=== PATIENT | female | born 1970 | race Caucasian/White ===

== ENCOUNTER 2018-11-09 06:09 | Day surgery (SDC) | payer OTHER ==
[~2018-11-09 06:09] MED LIST: ACETAMINOPHEN 1,000 MG/100 ML BTL IV ONE; CLINDAMYCIN PHOS/D5W 900MG 900 MG/50 ML BAG IVPB ONE
[2018-11-09] MEDS ORDERED: HYDROCODONE/APAP 5/325MG TABLET PO ONE (06:10)
[2018-11-09] MEDS ORDERED: PROPOFOL 10 MG/ML VIAL IV ONE (06:10)
[2018-11-09] MEDS ORDERED: FENTANYL PF 100MCG/2ML VIAL IV ONE (06:10)
[2018-11-09] MEDS ORDERED: LIDOCAINE 2% MDV (20MG/ML) 20ML VIAL IV ONE (06:10)
[2018-11-09] MEDS ORDERED: MIDAZOLAM HCL 2MG/2ML VIAL IV ONE (06:10)
[2018-11-09] MEDS ORDERED: ONDANSETRON HCL IV 4 MG/2 ML VIAL IVP ONE (06:10)
[2018-11-09] MEDS ORDERED: LIDOCAINE 1% MPF 100MG/10ML STERILE-PAK AMPULE SQ ONE (08:15)
[2018-11-09] MEDS ORDERED: BUPIVACAINE 0.5% (5MG/ML) PF 30ML VIAL SQ ONE (08:15)
--- NOTE | 2018-11-13 22:01 | Operative Note ---
DATE OF SURGERY: 11/09/2018 PREOPERATIVE DIAGNOSES: BUNION LEFT FOOT. PAINFUL LONG SECOND METATARSAL LEFT FOOT. PAINFUL HAMMERTOE SECOND TOE LEFT FOOT AND FURTHER BONY SPUR, PAINFUL. POSTOPERATIVE DIAGNOSES: BUNION LEFT FOOT. PAINFUL LONG SECOND METATARSAL LEFT FOOT. PAINFUL HAMMERTOE SECOND TOE LEFT FOOT AND FURTHER BONY SPUR, PAINFUL. PROCEDURE: 1. MATTY BUNIONECTOMY WITH INTERNAL SCREW FIXATION LEFT FOOT. 2. SHORTENING SECOND METATARSAL OSTEOTOMY WITH INTERNAL SCREW FIXATION LEFT FOOT. 3. HAMMERTOE REPAIR WITH K-WIRE FIXATION SECOND DIGIT LEFT FOOT. ANESTHESIA: LOCAL WITH IV SEDATION. SURGEON: CHEN CONWAY DPM INDICATIONS: The patient had painful bunion deformity long second metatarsal and second hammertoe left foot, not responsive to previous conservative care, requiring surgical intervention. X-ray consistent with prominent bunion deformity with laterally deviated hallux and sesamoids left, increased in first intermetatarsal angle long second metatarsal, and hammertoe second digit left foot. PROCEDURE IN DETAIL: The patient was brought in the O.R. suite and placed supine upon the O.R. table. After successful IV sedation was achieved, a tibial nerve block and dorsal proximal infiltrative block was given to the first and second ray of the left foot with 30 mL of 1% Lidocaine plain given after alcohol prep. Padding put on left ankle. Pneumatic cuff put in place. The left foot, ankle, and leg were prepped and draped in the usual sterile manner, exsanguinated with an Esmarch, and the tourniquet was raised to [address]. Linear incision outlined and made dorsal medial aspect of first metatarsophalangeal joint left foot, approximately 4.5 cm in length. Sharp and blunt dissection utilized to deepen the incision. All vital structures identified and retracted. An inverted L-capsulotomy performed and reflected, exposing a large bony prominence to the medial of the first metatarsal head, which was removed with the power sagittal saw, cooled with saline, maintaining the plantar sagittal groove. Blunt dissection was utilized to deepen the incision at the first interspace. Lateral capsulotomy performed. Ligament between the fibular sesamoid and the first metatarsal head isolated and transected. Deep intermetatarsal transverse ligament isolated and transected. Extensor hallucis brevis tendon isolated and transected. This achieved appropriate release of the lateral soft tissue. A 0.045 K-wire was then driven centrally, medial to lateral under C-arm guidance through the first metatarsal head, slightly plantarflexed, perpendicular to the second metatarsal shaft. The plantar and dorsal Matty cuts were made, cooled with saline. Wire removed. Capital fragment transposed approximately 3 to 4 mm laterally and temporarily fixated from two K-wires from the Osteomed set driven from a distal- dorsal to proximal-plantar fashion under C-arm guidance. Proximal cortices drilled. These wires measured at 16 mm. Two 2.4 mm x 16 mm headless cannulated Osteomed screws were driven in typical cannulated fashion. C-arm indicated appropriate length and position of screws. Good etet-zs-wasr contact of the osteotomy with reduction of the first metatarsal angle. No significant lateral tilting to the first metatarsal head cartilage noted. Proximal shelf of bone removed from the first metatarsal shaft, cooled with saline. C-arm indicates rectus position of first MPJ. No need for Kwaku osteotomy. Excessive capsule debrided. Wound flushed with copious amounts of sterile saline. Attention then directed to the second metatarsal and hammertoe. Linear incision made just proximal to the second metatarsal ending just at the distal interphalangeal joint on the second digit dorsally, approximately 4.5 cm in length. Sharp and blunt dissection utilized to deepen the incision. All vital structures identified and retracted without difficulty. Transverse tenotomy performed at proximal interphalangeal joint. Collaterals released. Adjacent surface of the PIPJ removed with the power sagittal saw, cooled with saline, parallel to one another, perpendicular to the weightbearing surface. Sharp and blunt dissection utilized to deepen the incision at the second metatarsophalangeal joint level. Extensor wing and sling cut medially. Dorsal capsulotomy performed and reflected. A shortening second metatarsal osteotomy was performed from a distal-dorsal to proximal-plantar fashion. Capital fragment transposed 2 to 3 mm proximally. Distal dorsal shelf of bone removed with rongeur. C-arm indicated appropriate shortening of second metatarsal shaft. Osteotomy fixated with a wire from the Osteomed set and the proximal cortex drilled. One 2.4 mm x 14 mm headless cannulated Osteomed screw driven in typical cannulated fashion. C-arm indicated good [id number] contact through osteotomy screw, appropriate length and in good positioning with shortened second metatarsal. Wound flushed with copious amounts of sterile saline. A 0.045 K-wire was then driven through the base of the middle phalanx distally at the end of the digit and retrograded back within the proximal phalangeal shaft under C-arm guidance reducing the hammertoe deformity. K-wire bent, cut, and capped. Wounds again flushed with saline. First MPJ and second MPJ capsule closed in simple interrupted fashion with #3-0 Vicryl. Extensor wing and sling and subcu levels closed in simple interrupted fashion with #4-0 Vicryl. Skin closed in subcuticular continuous fashion with #5-0 PDS to the bunion incision and the second toe incision closed in simple interrupted fashion with #4-0 nylon. A combination of sterile Adaptic, 4 x 4's, four-inch Cassandra, and CHRISTINE wrap were applied. Tourniquet deflated to 0 mmHg. Hyperemic flush noted to digits. The patient tolerated the procedure well and was transferred to the Recovery Room in stable condition without complaint. She is to minimize ambulation with cane, walker, and crutches and keep extremity elevated. Contact me by cell phone as needed and she is to follow-up in the office in the next several days. JOB NUMBER: [id number] MTDD
== END 2018-11-09 11:50 | disposition home or self-care (01) ==
LOC: SUR 06:09
PROVIDERS: ATTEND Podiatrist
DX: M21.612 Bunion of left foot (principal); M20.42 Other hammer toe(s) (acquired), left foot; M77.9 Enthesopathy, unspecified; I10 Essential (primary) hypertension; E78.00 Pure hypercholesterolemia, unspecified; E03.9 Hypothyroidism, unspecified
CPT/HCPCS: 81025; C1713; J2405; J3490